=== PATIENT | male | born 1960 ===

== ENCOUNTER → 2018-09-10 | Outpatient (CLI) | payer BC ==
--- NOTE | 2018-09-10 13:10 | OP ---
DATE OF PROCEDURE: 09/10/18 PREOPERATIVE DIAGNOSIS: 1. Right pleural effusion status post pneumonia. POSTOPERATIVE DIAGNOSIS: 1. Right pleural effusion status post pneumonia. SURGICAL PROCEDURE: 1. Sonographically guided thoracentesis, right chest, for right pleural effusion. SURGEON: Mina Macario MD. GRAIN UNLOADER MACHINE: None. ANESTHESIA: Local with infiltration of 1% lidocaine. INDICATION: The patient is a 58-year-old male who had been treated with two rounds of antibiotics for a persistent pneumonia. He has had some weight loss and night sweats. He had no palpable lymphadenopathy, but he has developed a pleural effusion and he was brought to the Ultrasound Suite today for sonographically guided thoracentesis for both diagnostic and therapeutic aspects. FINDINGS: Approximately 700 cc of dark, straw-colored, minimally clouded fluid was obtained. DESCRIPTION OF PROCEDURE: After the patient was brought to the Ultrasound Suite, he was sat on the side of the bed and his right posterior chest was inspected with the ultrasound device. Deep fluid pool was identified. The chest wall lateral to the probe was prepped with chlorhexidine and then draped. Local infiltration of anesthesia was obtained with 1% lidocaine and then the 22- gauge needle was introduced over the rib under sonographic guidance. 5 cc of fluid was obtained. At this point, a stab wound was made with the 11 blade and the thoracentesis catheter was introduced under direct vision and advanced until fluid was obtained. The catheter was then advanced and the needle withdrawn. The remaining fluid was obtained both by three-way stopcock and by suction canister. The specimen was sent for appropriate studies. The catheter was removed. Post procedure ultrasound revealed the lung to be inflated with no significant fluid. At this time, a sterile dressing was applied. The patient tolerated the procedure well. He was scheduled for a CT scan of the chest which is pending at this time. #[id number] [facility]
--- NOTE | 2018-09-11 12:08 | US ---
EXAM DESCRIPTION: Thoracentesis: Ultrasound CLINICAL HISTORY: RIGHT PLEURAL EFFUSION COMPARISON: CT scan of the chest after thoracentesis. Chest x-ray 2 views 09/02/2018. TECHNIQUE: The procedure was performed by Dr. Macario. Right posterior chest was scanned and effusion was located. Sterile procedure and technique with right posterior thoracic transcutaneous approach. Scans also obtained after the procedure. 400 mL was withdrawn. FINDINGS: Scans prior to the procedure demonstrate a small fluid collection in the base of the right pleural space. Scan after the procedure show significant decrease in effusion in the right pleural space. IMPRESSION: Successful ultrasound-guided thoracentesis of the right pleural space. 400 mL was withdrawn. Electronically signed by: Lincoln Hernández MD 09/11/2018 12:07 PM CDT
--- NOTE | 2018-09-11 13:16 | CT ---
EXAM DESCRIPTION: Chest w/Contrast : Computed Tomography. CLINICAL HISTORY: 58 years Male Pleural effusion RIGHT COMPARISON: . Ultrasound-guided right thoracentesis on the same visit. TECHNIQUE: Spiral-axial scans at 5 x 5 mm intervals through the lungs and thorax without IV contrast. 2.5 x 5 mm lung algorithm axial reconstructions. 2.0 Mm reconstructions. No adverse reactions. Total Exam DLP: 640.44 mGy-cm. This exam was performed according to our departmental dose-optimization program which includes automated exposure control, adjustment of the mA and/or kV according to patient size and/or use of iterative reconstruction technique; to reduce radiation dose to as low as reasonably achievable (ALARA). Nodule measurements under 10 mm are given as mean value of 3 axes diameters. FINDINGS: Lungs and large airways: Pleural parenchymal scarring and atelectasis lower right upper lobe, right middle lobe, and right lower lobe. Atelectasis versus small infiltrate in the right lower lobe abutting the hemidiaphragm. This is most likely atelectasis post thoracentesis. No abnormal pulmonary nodules or masses. No calcified nodules.. Pleural spaces: No pneumothorax. Minimal residual effusion in the base. Minimally enhancing nodular thickening in the anterior lateral pleura abutting the right upper lobe measuring 2.1 x 2.1 x 1.6 cm on axial series 2, image 22, and coronal series 602, image 55. Also right apical pleural thickening and blunting of the level of focal pleural thickening with minimal enhancement anterior pleura abutting the right middle lobe measuring 1.4 x 2.1 cm. No pleural calcifications. No significant pleural thickening on the left. Mediastinum and Ana: 1.3 x 1.2 cm paratracheal node. 9 x 10 mm pretracheal node. Smaller nodes in the azygos region and AP window. 1.2 x 1.7 cm node subcarinal. 9 mm right hilar node. Great vessels and Heart: Negative. Soft tissues of neck base, axillae, and chest wall: Unremarkable including thyroid gland. Upper abdomen: Gallbladder partially visualized. Otherwise Negative. Osseous structures: No lytic or blastic lesions. IMPRESSION: Diffuse and focal pleural thickening, right hemithorax, with 2 nodular pleural regions with minimal enhancement. No calcification. Minimal residual pleural effusion in the right pleural base. Atelectasis in the right lower lobe may be related to recent thoracentesis. Pleural parenchymal scarring or atelectasis in the right middle lobe. No right pneumothorax. Left lung and pleura are unremarkable. Borderline enlarged mediastinal nodes. Most likely infectious process or inflammatory. Consider follow-up chest CT scan in one month interval. Consider cytological evaluation if pleural fluid reaccumulates and/or pleural biopsy and mediastinal node biopsy. Electronically signed by: Lincoln Hernández MD 09/11/2018 1:14 PM CDT
== END ==
LOC: US 10:21
PROVIDERS: ATTEND Family Medicine
DX: J90 Pleural effusion, not elsewhere classified (principal); R91.8 Other nonspecific abnormal finding of lung field; J98.11 Atelectasis

== ENCOUNTER 2018-09-14 11:03 | Emergency (ER) | payer BC ==
--- NOTE | 2018-09-14 11:53 | ED.PDOC ---
History of Present Illness - General Chief Complaint: General Stated Complaint: fever/right sided chest pains Time Seen by Provider: 09/14/18 11:21 Source: patient Exam Limitations: no limitations - History of Present Illness Initial Comments: Augusto Garcia 58 y/o male stated that he had been having right sided dull ache started in 2018 everyday which he attributed to his work in the [employer] takes one Motrin relieves his symptoms then gradually got worse in August in which he got short winded with right side of his chest getting more achy and some occasional cough.Travelled to [facility] in June 2018 stayed for a week and has exposure to TB with friend diagnosed 3 mos. ago getting treated.Seen by his Md week of August treated for PNA and had 2 courses of antibiotics- Doxycycline 100 BID x 10 days then Levaquin 500mg qd x 7 days.Also had shingles during his antibiotic treatment treated and improved.But patient did not get better still with low grade fever ,chills,and weight loss of 7 pounds.Repeat CXR showed right pleural effusion underwent thoracentesis 4 days ago.Result showed reactive pleural effusion.Had CTA-chest -pleural thickening right. Timing/Duration: other - see hpi Severity: moderate Improving Factors: nothing Worsening Factors: nothing Associated Symptoms: other - see hpi Allergies/Adverse Reactions: Allergies NO KNOWN ALLERGY Allergy (Verified 09/14/18 11:25) Home Medications: Ambulatory Orders Aspirin [Aspirin Adult Low Dose] 81 mg PO DAILY 09/14/18 Lisinopril [Prinivil] 20 mg PO DAILY 09/14/18 Vitamins A & D W/ K [Adk [id number] Unit-Mcg] 1 capsule PO DAILY 09/14/18 Review of Systems - Review of Systems Constitutional: States: see HPI, chills, fever EENTM: States: no symptoms reported Respiratory: States: see HPI Cardiology: States: no symptoms reported Gastrointestinal/Abdominal: States: no symptoms reported Genitourinary: States: no symptoms reported Musculoskeletal: States: no symptoms reported Skin: States: no symptoms reported Neurological: States: no symptoms reported Endocrine: States: no symptoms reported All other Systems: Reviewed and Negative, No Change from Baseline Past Medical History (General) - Patient Medical History Hx Hypertension: Yes Surgical History: no surgical history - Vaccination History Immunizations Comment: unknown - Social History Hx Physical Abuse: No Hx Emotional Abuse: No Family Medical History - Family History Mother Family History: Unknown Living Status: Unknown Hx Family Cancer: Yes - mom-lungs Hx Family;Other: dad -liver cirrhosis Physical Exam - Physical Exam General Appearance: Alert, Comfortable, No apparent distress Eye Exam: bilateral normal Ears, Nose, Throat: hearing grossly normal, normal ENT inspection, normal pharynx Neck: non-tender, full range of motion, supple, normal inspection Respiratory: chest non-tender, no respiratory distress, decreased breath sounds - right lungs Cardiovascular/Chest: normal peripheral pulses, regular rate, rhythm, no murmur Peripheral Pulses: radial,right: 2+, radial,left: 2+ Gastrointestinal/Abdominal: non tender, soft, no organomegaly Back Exam: no CVA tenderness, no vertebral tenderness Extremity: no pedal edema, no calf tenderness Neurologic: alert, oriented x 3 Skin Exam: normal color, warm/dry Progress - Progress Progress: 09/14/18 12:10 Last Vital Signs Temp 98.2 F 09/14/18 11:22 Pulse 91 H 09/14/18 11:22 Resp 18 09/14/18 11:22 BP 119/73 09/14/18 11:22 Pulse Ox 98 09/14/18 11:22 - Results/Orders Results/Orders: 09/14/18 11:53 IV Care:Saline Lock per Protoc QSHIFT 09/14/18 12:00 EKG STAT Laboratory Results - last 24 hr 09/14/18 09/14/18 12:05 12:05 WBC 9.2 RBC 4.83 Hgb 13.7 L Hct 41.3 L MCV 85.6 MCH 28.4 MCHC 33.2 RDW 14.3 Plt Count 474 H MPV 7.4 Absolute Neuts (auto) 7.10 H Absolute Lymphs (auto) 0.80 L Absolute Monos (auto) 0.90 H Absolute Eos (auto) 0.40 Absolute Basos (auto) 0.10 Neutrophils % 76.8 Lymphocytes % 8.7 L Monocytes % 9.4 H Eosinophils % 4.4 Basophils % 0.7 PT 11.2 H INR 1.12 PTT (SP) 30.3 Sodium 133 L Potassium 4.6 Chloride 98 L Carbon Dioxide 23 Anion Gap 16.6 BUN 19 H Creatinine 1.04 BUN/Creatinine Ratio 18.3 Random Glucose 110 H Serum Osmolality 269.3 L Lactic Acid 1.1 Calcium 8.7 Magnesium 2.0 Total Bilirubin 0.6 Direct Bilirubin 0.1 Indirect Bilirubin 0.5 AST 44 H ALT 58 Alkaline Phosphatase 73 Creatine Kinase 50 CK-MB (CK-2) 1.1 CK-MB (CK-2) % Not Reportable Troponin I < 0.02 Serum Total Protein 8.9 H Albumin 3.2 - EKG/XRAY/CT XRAY: chest - PNA right lung base Departure - Departure Clinical Impression: Pneumonia Qualifiers: Pneumonia type: due to unspecified organism Laterality: right Lung location: lower lobe of lung Qualified Code(s): J18.1 - Lobar pneumonia, unspecified organism Time of Disposition: 16:24 Disposition: Transfer to Hospital Condition: Fair Departure Forms: ED Discharge - Pt. Copy, Patient Portal Self Enrollment Referrals: SHA WOODS MD [Primary Care Provider] - 1-2 Weeks Home Medications: Ambulatory Orders Aspirin [Aspirin Adult Low Dose] 81 mg PO DAILY 09/14/18 Lisinopril [Prinivil] 20 mg PO DAILY 09/14/18 Vitamins A & D W/ K [Adk [id number] Unit-Mcg] 1 capsule PO DAILY 09/14/18 Transfer to Outside Facility - Transfer Information Accepting Provider:: Dr. 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
--- NOTE | 2018-09-14 14:55 | RAD ---
EXAM DESCRIPTION: Chest,1 View: CR/DR/XR. CLINICAL HISTORY: 58 years Male SOB COMPARISON: Chest CT scan after thoracentesis by ultrasound 09/10/2018 TECHNIQUE: ONE VIEW PORTABLE. AP 1227 hours, upright position. FINDINGS: Atelectasis in the right lung base with decreased volume compared to the left. Small pleural effusion. Possible pneumonia. Lateral pleural thickening. Elevation of the right hemidiaphragm. No infiltrate left lung. No pneumothorax. Heart size upper normal limits. Pulmonary vascularity not increased. IMPRESSION: Atelectasis and possible pneumonia in the right lung base with decreased volume compared to the left. Elevated right hemidiaphragm and small pleural effusion. Electronically signed by: Lincoln Hernández MD 09/14/2018 2:53 PM CDT
[2018-09-14 18:20] VITALS: BP 108/76; TEMP 100.1; O2SAT 96
== END 2018-09-14 17:30 | disposition short-term general hospital (02) ==
LOC: ER 11:03
DX: J18.1 Lobar pneumonia, unspecified organism (principal); I10 Essential (primary) hypertension; Z20.1 Contact with and (suspected) exposure to tuberculosis; Z79.82 Long term (current) use of aspirin; Z79.899 Other long term (current) drug therapy; Z87.01 Personal history of pneumonia (recurrent)

== ENCOUNTER → 2018-12-25 | Outpatient (CLI) | payer BC ==
--- NOTE | 2018-12-25 15:27 | US ---
EXAM DESCRIPTION: Chest: ULTRASOUND. CLINICAL HISTORY: 58 years Male PLEURAL EFFUSION COMPARISON: Ultrasound guided thoracentesis and CT scan of the chest with contrast August 2018 TECHNIQUE: Transcutaneous scanning: Edmond-scale and Doppler modes. Impression: Only minimal fluid is noted in the right chest pleural cavity. No effusion in the left chest pleural cavity. Thoracentesis was not performed.. Electronically signed by: Lincoln Hernández MD 12/25/2018 3:26 PM [employer]
== END ==
LOC: US 10:28
PROVIDERS: ATTEND Surgery
DX: J90 Pleural effusion, not elsewhere classified (principal)